=== PATIENT | female | born 1980 | race Caucasian/White ===

== ENCOUNTER 2024-10-21 18:49 | Emergency (ER) | payer BC ==
[2024-10-21 20:16] VITALS: RESP 18; TEMP 98
--- NOTE | 2024-10-21 21:07 | ERPHSYRPT ---
- History of Present Illness Time Seen by Provider: 10/21/24 21:01 Source: patient Exam Limitations: no limitations Patient Subjective Stated Complaint: "I have arthritis in my lower back and some issues with L4 and L5 and have a MRI scheduled in 2 weeks and just finished therapy in September but the pain got so bad today, I can't walk. I called my spine doctor and he told me they can't give me any pain medicine until I get my MRI. But I can't stand this pain". Triage Nursing Assessment: Pt presents to ER with complaint of right lower back pain that goes to mid-spine. Pt is alert and oriented x 3. Skin is pink, warm, and dry. Respirations are easy. Pt has history of chronic back issues but can't walk today due to the pain. Rates pain 10/10 scale. Denies any issues urinating. Pt appears in pain. Denies any recent injury. Physician History: Patient presents with exacerbation of chronic back pain. She has an upcoming MRI of her lumbar spine to decide if she is going to proceed with injections or surgery. X-ray shows degenerative disc disease with spondylolisthesis. She reports radicular pain down the left lower extremity. No red flag symptoms today. Timing/Duration: gradual onset, worse Method of Injury: unknown Quality: burning, radiating, sharp, stabbing Back Pain Location: lumbar spine Back Pain Radiation: buttocks, upper legs, lower legs, feet Severity of Pain-Max: severe Severity of Pain-Current: severe Modifying Factors: Improves With: nothing Associated Symptoms: numbness in legs/feet, tingling in legs/feet, lower back pain, muscle spasms, No fever, No urinary incontinence, No loss of bowel control, No weakness, No sensory/motor loss Previous symptoms: same symptoms as today Allergies/Adverse Reactions: No Known Drug Allergies Allergy (Verified 10/21/24 20:16) Home Medications: Estradiol [Yuvafem] 1 tab VAG Q3D 10/21/24 [History] Medroxyprogesterone Acetate 5 mg PO DAILY 10/21/24 [History] estradioL [Estradiol (Once Weekly)] 1 patch ID Q3D 10/21/24 [History] Hx Tetanus, Diphtheria Vaccination/Date Given: No Hx Influenza Vaccination/Date Given: Yes Hx Pneumococcal Vaccination/Date Given: No Immunizations Up to Date: No Travel Risk - International Travel Have you traveled outside of the country in past 3 weeks: No - Emerging Infectious Disease Are you exhibiting symptoms associated with any current EIDs: No - Review of Systems All Other Systems: Reviewed and Negative - Past Medical History Pertinent Past Medical History: Yes Neurological History: Other ENT History: No Pertinent History Cardiac History: No Pertinent History Respiratory History: No Pertinent History Endocrine Medical History: No Pertinent History Musculoskeletal History: No Pertinent History GI Medical History: No Pertinent History History: No Pertinent History Psycho-Social History: No Pertinent History Female Reproductive Disorders: No Pertinent History Other Medical History: N/T INTO B UE AT TIMES THAT STOPS MID LATERAL THIGH. L KNEE SCOPE AND GALLBLADDER REMOVED. - Past Surgical History Past Surgical History: Yes Neuro Surgical History: No Pertinent History Cardiac: No Pertinent History Respiratory: No Pertinent History Gastrointestinal: Cholecystectomy Genitourinary: No Pertinent History Musculoskeletal: Orthopedic Surgery Female Surgical History: No Pertinent History - Female History Hx Last Menstrual Period: n/a Hx Now: No - Social History Smoking Status: Current every day smoker Exposure to second hand smoke: No Drug Use: none - Social Determinants of Health Will the patient participate in the screening: Yes Do you worry about a steady place to live?: No Do you have any problems with any of the following?: No known problems In the past 12 months,have you had to go without utilities?: No Transportation Issues: No Has anyone in your support network made you feel unsafe?: No Have you or anyone in your house had to go w/o enough food: No - Nursing Vital Signs Nursing Vital Signs: Initial Vital Signs Temperature 98 F 10/21/24 20:08 Pulse Rate 84 10/21/24 20:08 Respiratory Rate 18 10/21/24 20:08 Blood Pressure 133/78 10/21/24 20:08 O2 Sat by Pulse Oximetry 99 10/21/24 20:08 Pain Scale Pain Intensity [Lower Back] 10 Pain Intensity 5 - Physical Exam General Appearance: mild distress Back Exam: normal inspection, vertebral tenderness, decreased range of motion, muscle spasm, other (+ SLR, + Slump, + CATHY), No rash Neurologic Exam: alert, oriented x 3, cooperative SpO2 Interpretation: normal SpO2: 99 O2 Delivery: Room Air - Course Nursing assessment & vital signs reviewed: Yes Ordered Tests: Medication Summary Discontinued Medications Generic Name Dose Route Start Last Admin Trade Name Freq PRN Reason Stop Dose Admin Gabapentin 300 mg 10/21/24 21:08 10/21/24 21:27 Gabapentin 300 Mg Capsule PO 10/21/24 21:09 300 mg STAT ONE Administration Ketorolac Tromethamine 30 mg 10/21/24 21:07 10/21/24 21:21 Ketorolac Tromethamine 30 Mg/Ml Inj IM 10/21/24 21:08 30 mg STAT ONE Administration Ketorolac Tromethamine Confirm 10/21/24 21:18 Ketorolac Tromethamine 30 Mg/Ml Inj Administered 10/21/24 21:19 Dose 30 mg .ROUTE .STK-MED ONE Methocarbamol 1,000 mg 10/21/24 21:08 10/21/24 21:27 Methocarbamol 500 Mg Tablet PO 10/21/24 21:09 1,000 mg STAT ONE Administration Methylprednisolone Acetate 80 mg 10/21/24 21:07 10/21/24 21:20 Methylprednisolone Acetate 80 Mg/Ml Vial IM 10/21/24 21:08 80 mg STAT ONE Administration Methylprednisolone Acetate Confirm 10/21/24 21:18 Methylprednisolone Acetate 80 Mg/Ml Vial Administered 10/21/24 21:19 Dose 80 mg .ROUTE .STK-MED ONE - Progress Progress: improved Progress Note: 10/21/24 21:04 History and physical exam consistent with exacerbation of lumbar radiculopathy. She has upcoming MRI scheduled. No red flag symptoms today. Will give IM Toradol, Depo-Medrol 80 mg, methocarbamol and gabapentin. Recommend follow-up with her neurosurgeon. 10/21/24 22:37 Pain improved, sitting on side of bed. She has gabapentin at home I recommended taking as prescribed. Will sent 5 days of Ketorolac and Robaxin. Advised follow up with neurosurgeon. Counseled pt/family regarding: diagnosis Medical Desision Making - Diagnostic Testing Diagnostic test were ordered, analyzed, and reviewed by me: No - Risk of complications The pt has a mod risk of morbidity or mortality based on: Need for prescription drug management - Departure Departure Disposition: Home Clinical Impression: Lumbar radiculopathy, acute Condition: Good Critical Care Time: No Referrals: PEPPER HERNANDES FNP [NON-STAFF PHY W/O PRIVILEGES, UNKNOWN] - Follow up/PCP as directed Instructions: Low Back Pain (DC) Prescriptions: methocarbamoL [Methocarbamol] 1,000 mg PO QID PRN 5 Days #20 tablet PRN Reason: Muscle Spasms Ketorolac Trometh 10 mg Tab [TORAdol 10 MG TABLET] 10 mg PO TID PRN 5 Days #15 tablet PRN Reason: Pain
[2024-10-21] MEDS ORDERED: TORAdol 30 mg Injection ONE (21:18)
[2024-10-21] MEDS ORDERED: Depo-Medrol 80 MG/ML ONE (21:18)
[2024-10-21] MEDS: Depo-Medrol 80 MG/ML IM ONE (21:20)
[2024-10-21] MEDS: TORAdol 30 mg Injection IM ONE (21:21)
[2024-10-21] MEDS: Robaxin PO ONE (21:27)
[2024-10-21] MEDS: NEURONTIN PO ONE (21:27)
[2024-10-21 22:02] VITALS: BP 103/81; PULSE 77
[2024-10-21 22:41] VITALS: O2SAT 99
== END 2024-10-21 22:50 | disposition home or self-care (01) ==
LOC: ED 18:49
DX: M54.16 Radiculopathy, lumbar region (principal); Z79.899 Other long term (current) drug therapy; Z72.0 Tobacco use
CPT/HCPCS: 96372; 99283; 99284; J1885; A9270-GY